=== PATIENT | male | born 1965 | race Caucasian/White ===

== ENCOUNTER → 2017-05-31 | Outpatient (CLI) | payer BC | END | disposition home or self-care (01) | LOC: CDC 10:14 | DX: R94.31 Abnormal electrocardiogram [ECG] [EKG] (principal) | CPT/HCPCS: 93000 ==

== ENCOUNTER 2017-06-06 06:41 | Day surgery (SDC) | payer BC ==
[~2017-06-06] VITALS: Ht 177.8 cm; Wt 100.7 kg
[~2017-06-06 06:41] MED LIST: BENADRYL ALLERG25 MG PO; CYMBALTA30 MG PO; FLONASE16 G1 BOTH NARES; SINGULAIR10 MG PO; XANAX0.25 MG PO
[2017-06-06 07:34] VITALS: BP 139/100
[2017-06-06] MEDS ORDERED: PERCOCET 5/31 TABLET PO (10:04)
[2017-06-06 10:43] VITALS: BP 154/98
[2017-06-06 11:42] VITALS: BP 129/87
== END 2017-06-06 12:11 | disposition home or self-care (01) ==
LOC: SDC
PROC: 0WUF4JZ Supplement Abdominal Wall with Synthetic Substitute, Percutaneous Endoscopic Approach (ICD-10-PCS; principal; 2017-06-06)
DX: K43.6 Other and unspecified ventral hernia with obstruction, without gangrene (principal); I10 Essential (primary) hypertension; E78.5 Hyperlipidemia, unspecified; F41.1 Generalized anxiety disorder; R73.09 Other abnormal glucose; Z82.49 Family history of ischemic heart disease and other diseases of the circulatory system; Z80.41 Family history of malignant neoplasm of ovary; Z81.1 Family history of alcohol abuse and dependence
CPT/HCPCS: C1781; J0330; J0690; J1100; J1170; J1885; J2250; J2405; J2710; J3010